=== PATIENT | male | born 1980 | race Caucasian/White ===

== ENCOUNTER 2022-02-24 07:30 | Emergency (ER) | payer SELFPAY | END 2022-02-24 08:03 | disposition home or self-care (01) | LOC: CSHERS 07:30 | DX: B36.9 Superficial mycosis, unspecified (principal); F17.210 Nicotine dependence, cigarettes, uncomplicated; F17.220 Nicotine dependence, chewing tobacco, uncomplicated | CPT/HCPCS: 99282 ==

== ENCOUNTER 2025-06-17 11:39 | Emergency (ER) | payer SELFPAY ==
[2025-06-17] MEDS ORDERED: Ketorolac Tromethamine 30 MG (1 mL) VIAL ONE (12:11)
== END 2025-06-17 13:00 | disposition home or self-care (01) ==
LOC: CSHERS 11:39
DX: M54.50 Low back pain, unspecified (principal); F17.210 Nicotine dependence, cigarettes, uncomplicated
CPT/HCPCS: 72131; 96372; J1885

== ENCOUNTER 2025-09-05 04:50 | Emergency (ER) | payer SELFPAY ==
[2025-09-05] MEDS ORDERED: Acetaminophen 500 MG TAB ONE (09:01)
[2025-09-05] MEDS ORDERED: Gabapentin 300 MG CAP ONE (09:03)
[2025-09-05 09:30] LABS: #Basophils 0.05 10x3/uL (0.0-0.2); #Eosinophils 0.14 10x3/uL (0.0-0.5); #Monocytes 0.50 10x3/uL (0.0-1.1); #Neutrophils 4.48 10x3/uL (1.5-8.4); %Basophils 0.8 % (0.0-2.0); %Eosinophils 2.2 % (0.0-6.0); %Lymphocytes 19.3 % (18.0-47.0); %Monocytes 7.8 % (0.0-10.0); %Neutrophils 69.7 % (40.0-75.0); Hematocrit 42.7 % (38.8-50.0); Hemoglobin 14.3 g/dL (13.5-17.5); Mean Corpuscular Hemoglobin 29.9 pg (27.0-33.0); Mean Corpuscular Volume 89.3 fL (81.2-95.1); Platelet Count 299 10x3/uL (150-450); Red Blood Cell (RBC) Count 4.78 10x6/uL (4.32-5.72); White Blood Cell (WBC) Count 6.42 10x3/uL (3.5-10.5)
[2025-09-05 10:28] LABS: Carbon Dioxide 23 mmol/L (22-29); Chloride 104 mmol/L (98-107); Potassium 3.9 mmol/L (3.5-5.1); Sodium 140 mmol/L (136-145)
[2025-09-05 10:29] LABS: AST (SGOT) 20 U/L (11-34); Albumin 4.3 g/dL (3.1-4.5); Alkaline Phosphatase 72 U/L (40-110); Anion Gap 17 mmol/L (10-20); BUN (Urea Nitrogen) 13 mg/dL (8.9-20.6); Bilirubin, Total 0.5 mg/dL (0.3-1.2); Calc. Creatinine Clearance 0 mL/min (70-130); Calcium 9.1 mg/dL (7.6-10.4); Globulin 2.6 g/dL (2.4-3.5); Glucose 104 mg/dL (70-105)
[2025-09-05 10:30] LABS: ALT (SGPT) 15 U/L (Less than 45)
[2025-09-05 10:31] LABS: Acetaminophen Less than 10 mcg/mL (Less than 10)
[2025-09-05 10:32] LABS: Salicylate Less than 8.0 mg/dL (Less than 8.0)
[2025-09-05] MEDS ORDERED: Ketorolac Tromethamine 30 MG (1 mL) VIAL ONE (10:45)
[2025-09-08 20:39] LABS: Cocaine Metabolite Screen Negative (Negative); THC/Cannabinoid Screen Negative (Negative); Tricyclic Screen Negative (Negative)
[2025-09-08 20:49] LABS: Glucose, Urine (Dipstick) Normal (Negative); Leukocyte Negative (Negative); Protein, Urine (Dipstick) 15 mg/dl (Neg-Trace); Specific Gravity, Urine 1.025 (1.005-1.030)
[2025-09-08 20:50] LABS: Bacteria/HPF Rare-Few HPF (None Seen); RBC/HPF 0-3 HPF (0-3); WBC/HPF 0-3 HPF (0-3)
== END 2025-09-05 12:10 | disposition home or self-care (01) ==
LOC: CSHERS 04:50
DX: M54.50 Low back pain, unspecified (principal); G89.29 Other chronic pain; X50.0XXA Overexertion from strenuous movement or load, initial encounter
CPT/HCPCS: 72100; 80053; 80306; 80307; 81001; 83605; 85025; 86140; 93005; 96374; J1885